=== PATIENT | male | born 1930 | race Caucasian/White ===

== ENCOUNTER 2016-03-06 09:56 | Inpatient (IN) ==
[2016-03-06] MEDS ORDERED: 0.9 % SODIUM CHLORIDE 1,000 ML IV ONE (10:08)
[2016-03-06] MEDS ORDERED: IPRATROPIUM/ALBUTEROL 3 ML AMPUL.NEB NEB ONE (10:17)
--- NOTE | 2016-03-06 10:27 | Emergency Department Note ---
General Adult HPI - General Chief complaint: Weakness Stated complaint: Confusion, SOB Time Seen by Provider: 03/06/16 10:22 Source: patient Mode of arrival: ambulatory Limitations: no limitations - History of Present Illness HPI Narrative: This patient comes down from [facility]. He was found this morning to be a bit confused but his O2 saturation was in the 70s. He is doing now better on oxygen and with a breathing treatment. He does have some wheezing. He had some body aches yesterday but not too much cough no chest pain. No abdominal pain nausea or vomiting. Onset (ago): hour(s) - Related Data Allergies Allergy/AdvReac Type Severity Reaction Status Date / Time Penicillins Allergy Verified 03/06/16 10:08 Review of Systems Constitutional: Denies: fever, chills Eyes: Denies: eye pain ENT ED: Denies: ear pain, throat pain Cardiovascular: Reports: dyspnea on exertion. Denies: chest pain, palpitations Respiratory: Reports: dyspnea. Denies: cough Gastrointestinal: Denies: abdominal pain, nausea, vomiting, diarrhea, constipation, hematemesis, melena, hematochezia Genitourinary: Denies: urgency Musculoskeletal: Denies: back pain Integumentary: Denies: rash Neurological: Denies: headache Past Medical History - Past Medical History Medical history: Reports: asthma, COPD, coronary artery disease Surgical history ED: Reports: coronary bypass (CABG), other (abdominal aortic aneurysm with repair) Physical Exam - General Limitations: no limitations General appearance: alert - Head Head exam: atraumatic - Eye Eye exam: Present: normal appearance - ENT ENT exam: normal exam - Neck Neck exam: Present: normal inspection - Chest Chest inspection: Present: normal inspection - Respiratory Respiratory exam: Present: wheezes - Cardiovascular Cardiovascular exam: Present: regular rate, normal rhythm, normal heart sounds - Abdominal Exam Abdominal exam: Present: soft. Absent: distention, tenderness - Rectal Exam Rectal exam: Present: deferred - Extremities Exam Extremities exam: Absent: pedal edema - Neurological Exam Neurological exam: Present: alert - Psychiatric Psychiatric exam: Present: normal affect - Skin Skin exam: Present: warm, dry Course Vital Signs Temperature 99.3 F 03/06/16 09:58 Pulse Rate 86 03/06/16 09:58 Respiratory Rate 28 H 03/06/16 09:58 Blood Pressure 98/50 03/06/16 09:58 Pulse Oximetry (%) 98 03/06/16 09:58 Temperature 96.5 F L 03/06/16 12:54 Pulse Rate 73 03/06/16 12:54 Respiratory Rate 24 03/06/16 12:54 Blood Pressure 89/54 03/06/16 12:54 Pulse Oximetry (%) 96 03/06/16 12:54 Medical Decision Making - MDM Narrative Medical decision making narrative: This patient is doing reasonably well on oxygen after breathing treatment but his blood pressure despite 2 L of saline was in the 80s. We started him on dopamine. He will be admitted to the ICU with pneumonia. - Lab Data Lab results reviewed: Yes I reviewed the patient's lab results. Result diagrams: 03/06/16 10:44 03/06/16 10:44 Lab Results 03/06/16 03/06/16 03/06/16 Range/Units 10:44 10:44 10:44 WBC 18.3 H (4.5-11.0) K/mcL RBC 3.67 L (4.50-5.90) M/mcL Hgb 11.2 L (13.5-16.5) g/dL Hct 34.4 L (41.0-55.0) % MCV 93.9 (80.0-100.0) fL MCH 30.5 (26.0-34.0) pg MCHC 32.4 (31.0-36.0) g/dL RDW 14.4 (11.5-14.5) % Plt Count 221 (140-440) K/mcL MPV 8.7 (7.4-10.4) fL Gran % 93.7 H (38.0-78.0) % Lymph % (Auto) 4.4 L (15.5-49.0) % [place] % (Auto) 1.9 (1.0-9.0) % Eos % (Auto) 0 (0.0-7.0) % Baso % (Auto) 0 (0.0-2.0) % Gran # 17.2 H (1.8-8.0) K/mcL Lymph # 0.8 L (1.5-4.8) K/mcL [place] # 0.3 (0.1-0.9) K/mcL Eos # 0 (0.0-0.7) K/mcL Baso # 0 (0.0-0.3) K/mcL VBG Lactic Acid 0.8 (0.5-2.2) mmol/L Sodium 139 (133-145) mmol/L Potassium 5.5 H (3.3-5.1) mmol/L Chloride 106 (96-108) mmol/L Carbon Dioxide 22 (22-30) mmol/L Anion Gap 11.0 (8-16) BUN 68 H (8-23) mg/dl Creatinine 1.4 H (0.7-1.2) mg/dl GFR Calculation 46 Glucose 128 H (70-105) mg/dL Calcium 8.6 (8.6-10.4) mg/dl Total Bilirubin 0.4 (0.0-1.0) mg/dL AST 16 (0-37) U/l ALT 15 (0-40) U/l Alkaline Phosphatase 71 (39-117) U/L Troponin T (0-0.03) ng/ml NT-Pro-B Natriuret Pep 1514.0 H (0-450) pg/ml Total Protein 6.3 (5.9-8.4) gm/dL Albumin 3.3 (3.2-5.2) gm/dL Globulin 3.0 (2.2-3.7) gm/dL Albumin/Globulin Ratio 1.1 (1.0-2.3) Urine Color Urine Appearance Urine pH (5.0-9.0) Ur Specific [place] (1.000-1.035) Urine Protein (NEG) mg/dL Urine Glucose (UA) (NEG) mg/dL Urine Ketones (NEG) mg/dL Urine Occult Blood (<0.03) mg/dL Urine Nitrate (NEG) Urine Bilirubin (NEG) mg/dL Urine Urobilinogen (NEG) mg/dL Ur Leukocyte Esterase (NEG) /uL Urine RBC (0-1) /hpf Urine WBC (0-4) /hpf Ur Squamous Epith Cells (0-4) /hpf Urine Bacteria (0) /hpf Urine Mucus (0) /hpf Ur Culture Indicated? 03/06/16 03/06/16 Range/Units 10:44 11:52 WBC (4.5-11.0) K/mcL RBC (4.50-5.90) M/mcL Hgb (13.5-16.5) g/dL Hct (41.0-55.0) % MCV (80.0-100.0) fL MCH (26.0-34.0) pg MCHC (31.0-36.0) g/dL RDW (11.5-14.5) % Plt Count (140-440) K/mcL MPV (7.4-10.4) fL Gran % (38.0-78.0) % Lymph % (Auto) (15.5-49.0) % [place] % (Auto) (1.0-9.0) % Eos % (Auto) (0.0-7.0) % Baso % (Auto) (0.0-2.0) % Gran # (1.8-8.0) K/mcL Lymph # (1.5-4.8) K/mcL [place] # (0.1-0.9) K/mcL Eos # (0.0-0.7) K/mcL Baso # (0.0-0.3) K/mcL VBG Lactic Acid (0.5-2.2) mmol/L Sodium (133-145) mmol/L Potassium (3.3-5.1) mmol/L Chloride (96-108) mmol/L Carbon Dioxide (22-30) mmol/L Anion Gap (8-16) BUN (8-23) mg/dl Creatinine (0.7-1.2) mg/dl GFR Calculation Glucose (70-105) mg/dL Calcium (8.6-10.4) mg/dl Total Bilirubin (0.0-1.0) mg/dL AST (0-37) U/l ALT (0-40) U/l Alkaline Phosphatase (39-117) U/L Troponin T < 0.01 (0-0.03) ng/ml NT-Pro-B Natriuret Pep (0-450) pg/ml Total Protein (5.9-8.4) gm/dL Albumin (3.2-5.2) gm/dL Globulin (2.2-3.7) gm/dL Albumin/Globulin Ratio (1.0-2.3) Urine Color Yellow Urine Appearance Hazy Urine pH 5.0 (5.0-9.0) Ur Specific [place] 1.019 (1.000-1.035) Urine Protein Neg (NEG) mg/dL Urine Glucose (UA) Negative (NEG) mg/dL Urine Ketones 5/tr A (NEG) mg/dL Urine Occult Blood 0.2 A (<0.03) mg/dL Urine Nitrate Neg (NEG) Urine Bilirubin Neg (NEG) mg/dL Urine Urobilinogen Neg (NEG) mg/dL Ur Leukocyte Esterase Neg (NEG) /uL Urine RBC 4 H (0-1) /hpf Urine WBC 1 (0-4) /hpf Ur Squamous Epith Cells 0 (0-4) /hpf Urine Bacteria 0 (0) /hpf Urine Mucus Mod (0) /hpf Ur Culture Indicated? No - Radiology Data Radiology results reviewed: Yes I reviewed the patient's radiology results. ( chest x-ray shows pneumonia with possible fluid overload) Disposition Clinical Impression: Pneumonia Disposition: Xfer As Inpt ([facility]) Condition: Good Referrals: Haven Ricks ARNP [Primary Care Provider] - Time of Disposition: 13:14
[2016-03-06] MEDS ORDERED: LIDOCAINE JEL 2% 1 TUBE 30GM TOPICAL ONE (10:46)
[2016-03-06 11:28] LABS: Basophils # (Auto) 0 K/mcL (0.0-0.3); Basophils % (Auto) 0 % (0.0-2.0); Eosinophils # (Auto) 0 K/mcL (0.0-0.7); Eosinophils % (Auto) 0 % (0.0-7.0); Granulocytes % (Auto) 93.7 % (38.0-78.0); Lymphocytes # (Auto) 0.8 K/mcL (1.5-4.8); Lymphocytes % (Auto) 4.4 % (15.5-49.0); Mean Cell Volume 93.9 fL (80.0-100.0); Mean Corpuscular HGB Conc 32.4 g/dL (31.0-36.0); Mean Corpuscular Hemoglobin 30.5 pg (26.0-34.0); Monocytes # (Auto) 0.3 K/mcL (0.1-0.9); Monocytes % (Auto) 1.9 % (1.0-9.0); Platelet Count 221 K/mcL (140-440); RBC 3.67 M/mcL (4.50-5.90); Red Cell Distribution Width 14.4 % (11.5-14.5)
[2016-03-06] MEDS ORDERED: LEVOFLOXACIN 500 MG/100 ML BAG IV ONE (11:43)
[2016-03-06] MEDS ORDERED: cefTRIAXone 1 GM in DEXTROSE 5% IN WATER 50 ML IV ONE (11:43)
--- NOTE | 2016-03-06 11:43 | XRay Report ---
CLINICAL INFORMATION: Hypoxia COMPARISON: None. FINDINGS: The heart is mildly enlarged and sternotomy changes noted. Mediastinum is normal. Pulmonary vessels are slightly distended. Moderate sized, yet vague patchy infiltrate noted in the right mid and lower lung with a smaller infiltrate in the left lower lung. IMPRESSION: Moderate sized vague right mid/lower lung and smaller left lower lung infiltrates. Consider aspiration. Probable underlying mild CHF or volume overload Interpreted and Authenticated by: Zack Pelayo 03/06/16
[2016-03-06 11:54] LABS: ALT/SGPT 15 U/l (0-40); Albumin 3.3 gm/dL (3.2-5.2); Albumin/Globulin Ratio 1.1 (1.0-2.3); Alkaline Phosphatase 71 U/L (39-117); Blood Urea Nitrogen 68 mg/dl (8-23)
[2016-03-06] MEDS ORDERED: DOPamine 400 MG in PREMIX 1 BAG IV SCH (12:00)
[2016-03-06] MEDS ORDERED: 0.9 % SODIUM CHLORIDE 250 ML IV SCH ×2 (12:00→15:17)
[2016-03-06] MEDS ORDERED: cefTRIAXone 1 GM VIAL ONE (12:16)
[2016-03-06 12:46] LABS: Appearance,Urine HAZY; Bacteria,Urine 0 /hpf (0); Bilirubin,Urine NEG (NEG); Color,Urine YELLOW; Glucose,Urine (UA) NEGATIVE (NEG); Leukocyte Esterase,Urine NEG /uL (NEG); Mucus,Urine MOD /hpf (0); Nitrate,Urine NEG (NEG); Protein,Urine NEG (NEG); Specific Gravity,Urine 1.019 (1.000-1.035); Urine Blood 0.2 mg/dL (<0.03); Urine RBC 4 /hpf (0-1); Urine Squamous Epithelial Cell 0 /hpf (0-4); Urine WBC 1 /hpf (0-4); Urobilinogen,Urine NEG (NEG)
--- NOTE | 2016-03-06 14:57 | Internal Med History&Physical ---
Medical - H&P: HPI Patient information: Note initiated : 03/06/16 at 2:34 pm Service Date, if different from initiated Date: [] Patient: Radames Patten 85 y/o M admitted on for Confusion, SOB. Chief Complaint: [] History of present illness: Mr. Patten is a 85 year old male for 911 was called today for respiratory distress. His initial O2 saturations were reportedly in the 70s, with systolic blood pressure in the 80s. ER evaluation revealed evidence of both pulmonary infiltrates and congestive heart failure. The patient is responding to treatment with oxygen and IV fluids and a dopamine drip. He is now being admitted for community-acquired pneumonia, possibly aspiration pneumonia. the patient states that he has been having trouble with his breathing for at least a month, and was recently seen by pulmonary in [place]. He says they told him he had asthma although his son believes they said he had underlying COPD as well. He was started on a new inhaler Advair, and said ithad been working pretty well he thought. However the last several days she is experiencing increasing shortness of breath. His family notes he has been getting weaker. He has had a cough for quite some time, but said that also had been better recently. He otherwise denies fever or chills, headaches or dizziness, recent eye or ear changes, sore throat, chest pain or palpitations, wheezing, abdominal pain, nausea or vomiting. He does have occasional diarrhea, but says that is chronic. He denies rectal bleeding or dysuria. past medical history: he patient's records did not arrive with him, so the only history we have is from his and his son's memory Asthma COPD Coronary disease, status post OR, status post CABG reported CHF with an ejection fraction of 30% History of hyperlipidemia History of aortic aneurysm repair medications: the patient cannot recall his medications, but believes he is on several inhalers, and bowel meds. staff is trying to contact his pharmacy to verify a list. Allergies: Reportedly to penicillin which causes respiratory distress, and also possibly amiodarone. Family history: The patient was raised in foster care. He believes his natural mother was an alcoholic. Family history is otherwise unknown. Social history: The patient smoked cigarettes for decades, but quit about 20 years ago. He drinks alcohol rarely. He does not use drugs. He usually lives with his girlfriend, but sometimes will stay with his son. Medical - H&P: Meds Allergies Allergy/AdvReac Type Severity Reaction Status Date / Time Penicillins Allergy Severe Anaphylaxis Verified 03/06/16 15:35 Medical - H&P: Exam - Constitutional Vitals: Temp Pulse Resp BP Pulse Ox 96.5 F L 70 24 85/51 97 03/06/16 12:54 03/06/16 14:00 03/06/16 12:54 03/06/16 14:00 03/06/16 14:00 Exam: on exam, the patient is awake and alert, but somewhat hard of hearing. He is a bit irritable at being asked of the same questions again. He tends to yell his answers back at me. Head: Is normocephalic and atraumatic. Ears:There is moderate cerumen in the canals, butTMs appear clear. Eyes: He is blind in his right eye, and has disconjugate gaze. His left pupil is round and reactive. Sclera are anicteric. Pharynx: Mucosa is markedly dry. He has an upper plate only in place Posterior pharynx is not well seen. Neck: Is supple, without obvious lymphadenopathy, JVD, thyromegaly, bruits. Cardiac exam: regular rate and rhythm; 3/6 systolic ejection murmur is heard throughout the precordium. No rubs or gallops are noted. Breath sounds are somewhat decreased but there appear to be a few crackles in the right base, without significant wheezing. Abdomen: Is soft and nontender, without obvious masses. Bowel sounds are active. Extremities show no significant edema. No cyanosis or clubbing is noted. Neurologic: The patient is somewhat hard of hearing, and irritable, but is otherwise alert and cooperative. Motor exam is grossly nonfocal. Skin exam: Does not show any obvious rashes or other worrisome skin lesions. Medical - H&P: Reslt - Labs CBC & Chem 7: 03/06/16 10:44 03/06/16 10:44 Labs: Short CBC 03/06/16 Range/Units 10:44 WBC 18.3 H (4.5-11.0) K/mcL Hgb 11.2 L (13.5-16.5) g/dL Hct 34.4 L (41.0-55.0) % Plt Count 221 (140-440) K/mcL BMP 03/06/16 10:44 Sodium 139 Potassium 5.5 H Chloride 106 Carbon Dioxide 22 BUN 68 H Creatinine 1.4 H Glucose 128 H Calcium 8.6 Cardiac Enzymes 03/06/16 Range/Units 10:44 Troponin T < 0.01 (0-0.03) ng/ml Liver Function 03/06/16 Range/Units 10:44 Total Bilirubin 0.4 (0.0-1.0) mg/dL AST 16 (0-37) U/l ALT 15 (0-40) U/l Alkaline Phosphatase 71 (39-117) U/L Albumin 3.3 (3.2-5.2) gm/dL Urine 03/06/16 Range/Units 11:52 Urine Color Yellow Urine Appearance Hazy Urine pH 5.0 (5.0-9.0) Ur Specific [place] 1.019 (1.000-1.035) Urine Protein Neg (NEG) mg/dL Urine Glucose (UA) Negative (NEG) mg/dL differential shows 93% granulocytes, with 17,000 absolute granulocyte count lactic acid is normal at 0.8 The BNP is elevated at 1514 eKG shows probable sinus rhythm with left axis deviationand slow R-wave progression. There is no old EKG to compare. chest x-ray done on March 06, 2016:Mild cardiomegaly and sternotomy changes. Pulmonary vessels are slightly distended. There is a moderate patchy infiltrate noted in the right mid and lower lungs and a small infiltrate in the left lower lung. Consider aspiration pneumonia. Consider underlying CHF. d-dimer is elevated at 5.53 Lactic acid is normal at 0.8 urinalysis shows 5 ketones and 0.2 occult blood, but is otherwise normal. Medical - H&P: A/P (1) Asthma Current visit: Yes Status: Acute (2) COPD (chronic obstructive pulmonary disease) Current visit: Yes Status: Acute (3) Acute and chronic respiratory failure ([id number]) Current visit: Yes Status: Acute (4) CHF (congestive heart failure) Current visit: Yes Status: Acute (5) CAD (coronary artery disease) Current visit: Yes Status: Acute (6) Hx of CABG Current visit: Yes Status: Acute (7) ARF (acute renal failure) Current visit: Yes Status: Acute #1. Infectious disease/Pulmonary. this patient presents with acute on chronic respiratory failure likely due to bilateral pneumonia. This appears to be an aspiration pneumonia. -he was initially quite hypoxic, but is much improved on oxygen. -treat for both community-acquired and aspiration pneumonia, with Rocephin and clindamycin, as he is allergic to penicillin.- -Continue oxygen, bronchodilators, pulmonary toilet. -try to verify home medications. He might require either inhaled or IV steroids as well. -d-dimer is positive, which may be related to is infectious process. If he does not respond quickly to treatment for infection, we may need to do a pulmonary angiogram. His BUN/creatinine at this time are such that he could not have IV dye. -speech evaluation ordered, in view of possible aspiration. #2. SIRS syndrome -He may have early sepsis related to pneumonia, as evidenced by fever, tachypnea , hypoxia, hypotension leukocytosis. -He is receiving aggressive IV hydration as well as antibiotics. -lactic acid is normal. #3. Cardiac. History of coronary disease as well as congestive heart failure. He has evidence of mild CHF on his x-ray, but clinically appears more dry, so he is receiving IV fluids. He is also receiving IV vasopressors to support blood pressure, and we will wean fluids as we are able. -Verify home medications. -check echocardiogram. #4. CODE STATUS: This was discussed with the patient as well as his son, and they agreed that he might be willing to accept ventilator management if he needed that to get over his pneumonia, but if his heart stops he does not want chest compressions or defibrillation. #5. DVT prophylaxis:Subcutaneous heparin for now,unless it turns out that he is on an anticoagulant at home. #6. Renal. he appears to have acute renal insufficiency associated with hyperkalemia. We will monitor this as we hydrate him. this visit took approximately 75 minutes, to review the patient's test results, review his case with the ER Kevin, interview and examine him, review plan of care with the patient and his son and girlfriend, and write orders.
[2016-03-06] MEDS ORDERED: ONDANSETRON 4 MG/2 ML VIAL IV PRN (15:17)
[2016-03-06] MEDS ORDERED: DOPamine 400 MG in PREMIX 1 BAG IV PRN (15:17)
[2016-03-06] MEDS ORDERED: NALOXONE HCL 0.4 MG/ML VIAL IV PRN (15:17)
[2016-03-06] MEDS ORDERED: DOCUSATE SODIUM 100 MG CAPSULE PO PRN (15:17)
[2016-03-06] MEDS ORDERED: ALBUTEROL SULFATE 2.5 MG/3 ML NEBULIZER NEB PRN (15:17)
[2016-03-06] MEDS ORDERED: ACETAMINOPHEN 325 MG TABLET PO PRN (15:17)
[2016-03-06] MEDS ORDERED: SENNOSIDES 1 TABLET PO PRN (15:17)
[2016-03-06] MEDS ORDERED: MAGNESIUM HYDROXIDE 30 ML ORAL.SUSP PO PRN (15:17)
[2016-03-06 15:51] LABS: ALT/SGPT 15 U/l (0-40); Albumin 3.2 gm/dL (3.2-5.2); Alkaline Phosphatase 70 U/L (39-117); Bilirubin,Direct < 0.2 mg/dL (0.0-0.3); Blood Urea Nitrogen 69 mg/dl (8-23); Gamma Glutamyl Transpeptidase 18 U/L (8-61); Magnesium 2.1 mg/dL (1.6-2.5); Phosphorous 2.8 mg/dL (2.7-4.5); Uric Acid 6.1 mg/dL (2.5-8.0)
[2016-03-06] MEDS: DEXTROSE 5%-1/2NS 1,000 ML IV SCH (15:55)
[2016-03-06] MEDS: 0.9 % SODIUM CHLORIDE 10 ML SYRINGE IV SCH ×2 (15:59→22:24)
[2016-03-06] MEDS: 0.9 % SODIUM CHLORIDE 250 ML IV SCH ×2 (16:24)
[2016-03-06] MEDS: CLINDAMYCIN 600 MG in DEXTROSE 5% IN WATER 50 ML IV SCH ×2 (16:25→22:14)
[2016-03-06] MEDS: NOREPINEPHRINE BITARTRATE 8 MG in 0.9 % SODIUM CHLORIDE 242 ML IV SCH (17:16)
[2016-03-06] MEDS: IPRATROPIUM/ALBUTEROL 3 ML AMPUL.NEB NEB SCH (18:02)
[2016-03-06 19:20] LABS: Hemoglobin A1C 5.8 % HGB (4.0-6.0)
[2016-03-06] MEDS: FAMOTIDINE/PF 20 MG/2 ML VIAL IV SCH (22:13)
[2016-03-06] MEDS: HEPARIN 5,000 UNIT/ML VIAL SQ SCH (22:14)
[2016-03-06] MEDS: LORazepam 2 MG/ML VIAL IV PRN (23:07)
[2016-03-07] MEDS: IPRATROPIUM/ALBUTEROL 3 ML AMPUL.NEB NEB SCH ×4 (00:09→19:40)
[2016-03-07] MEDS: 0.9 % SODIUM CHLORIDE 250 ML IV SCH ×5 (01:22→16:24)
[2016-03-07] MEDS: DEXTROSE 5%-1/2NS 1,000 ML IV SCH (04:36)
[2016-03-07] MEDS: CLINDAMYCIN 600 MG in DEXTROSE 5% IN WATER 50 ML IV SCH ×3 (05:26→21:35)
[2016-03-07 05:53] LABS: Basophils # (Auto) 0 K/mcL (0.0-0.3); Basophils % (Auto) 0 % (0.0-2.0); Eosinophils # (Auto) 0.2 K/mcL (0.0-0.7); Eosinophils % (Auto) 1.3 % (0.0-7.0); Granulocytes % (Auto) 89.9 % (38.0-78.0); Lymphocytes % (Auto) 5.5 % (15.5-49.0); Mean Cell Volume 95.4 fL (80.0-100.0); Mean Corpuscular HGB Conc 32.2 g/dL (31.0-36.0); Mean Corpuscular Hemoglobin 30.7 pg (26.0-34.0); Monocytes # (Auto) 0.6 K/mcL (0.1-0.9); Monocytes % (Auto) 3.3 % (1.0-9.0); Platelet Count 206 K/mcL (140-440); RBC 3.26 M/mcL (4.50-5.90); Red Cell Distribution Width 14.3 % (11.5-14.5)
[2016-03-07] MEDS: 0.9 % SODIUM CHLORIDE 10 ML SYRINGE IV SCH ×3 (06:13→22:00)
[2016-03-07 06:27] LABS: ALT/SGPT 12 U/l (0-40); Albumin 2.9 gm/dL (3.2-5.2); Alkaline Phosphatase 65 U/L (39-117); Bilirubin,Direct < 0.2 mg/dL (0.0-0.3); Blood Urea Nitrogen 52 mg/dl (8-23); Gamma Glutamyl Transpeptidase 18 U/L (8-61); Magnesium 2.2 mg/dL (1.6-2.5); Phosphorous 2.5 mg/dL (2.7-4.5); Uric Acid 5.5 mg/dL (2.5-8.0)
[2016-03-07] MEDS: FAMOTIDINE/PF 20 MG/2 ML VIAL IV SCH ×2 (09:16→21:35)
[2016-03-07] MEDS: cefTRIAXone 1 GM in DEXTROSE 5% IN WATER 50 ML IV SCH (09:16)
[2016-03-07] MEDS: HEPARIN 5,000 UNIT/ML VIAL SQ SCH ×2 (09:16→21:35)
[2016-03-07] MEDS ORDERED: FUROSEMIDE 20 MG/2 ML VIAL IV ONE (11:50)
[2016-03-07] MEDS ORDERED: NOREPINEPHRINE BITARTRATE 8 MG in 0.9 % SODIUM CHLORIDE 242 ML IV PRN (11:56)
[2016-03-07] MEDS: NOREPINEPHRINE BITARTRATE 8 MG in 0.9 % SODIUM CHLORIDE 242 ML IV SCH (12:17)
--- NOTE | 2016-03-07 13:18 | Internal Med Progress Note ---
Medical - PN: Subj Patient information: Note initiated : 03/07/16 at 1:18 pm Service Date, if different from initiated Date: [] Patient: Radames Patten 85 y/o M admitted on 03/06/16 for Confusion, SOB/ Pneumonia. Chief Complaint: [] Interval history: March 06, 2016:History of present illness: Mr. Patten is a 85 year old male for 911 was called today for respiratory distress. His initial O2 saturations were reportedly in the 70s, with systolic blood pressure in the 80s. ER evaluation revealed evidence of both pulmonary infiltrates and congestive heart failure. The patient is responding to treatment with oxygen and IV fluids and a dopamine drip. He is now being admitted for community-acquired pneumonia, possibly aspiration pneumonia. the patient states that he has been having trouble with his breathing for at least a month, and was recently seen by pulmonary in [place]. He says they told him he had asthma although his son believes they said he had underlying COPD as well. He was started on a new inhaler Advair, and said ithad been working pretty well he thought. However the last several days she is experiencing increasing shortness of breath. His family notes he has been getting weaker. He has had a cough for quite some time, but said that also had been better recently. He otherwise denies fever or chills, headaches or dizziness, recent eye or ear changes, sore throat, chest pain or palpitations, wheezing, abdominal pain, nausea or vomiting. He does have occasional diarrhea, but says that is chronic. He denies rectal bleeding or dysuria. march 07, 2016: today, the patient says he is feeling much better.e is now maintaining his oxygen saturations on room air. He was weaned off his levophed this morning, and is maintaining his blood pressures nicely.he is already asking when he could go home. His white blood cell count though, remains quite elevated. Later this morning,he became more dyspneic with an increased respiratory rate. On reviewing his home medication list, which we just got, he is supposed to be on several cardiac meds including Lasix at home. He was given a dose of IV Lasix, and seemed to improve. therwise, he denies fever or chills, chest pain or palpitations. He feels his shortness of breath is improved, but not at baseline He thinks he is coughing less as well. He denies abdominal pain, nausea or vomiting. He does say that he has occasional constipation. He would like to have his Guerra catheter removed. 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 - He has severe systolic dysfunction with an ejection fraction of 25%, status post CABG. They recommendedmaintaining him on his Lasix, potassium, Coreg, lisinopril. They did suggest that he seek AICD placement for possible biventricular pacing but the patient apparently is not terribly interested in that. -ischemic cardiomyopathy, status post triple vessel bypass in January 2014, as well as myocardial infarction COPD Lipidemia GERD Renal insufficiency BPH next line coagulopathy left bundle-branch block - Constitutional Vitals: Vital Signs Temp Pulse Resp BP Pulse Ox 97.7 F 71 28 H 104/66 97 03/07/16 12:00 03/07/16 12:00 03/07/16 12:00 03/07/16 12:00 03/07/16 12:00 Period Temp Pulse Resp BP Sys/Plummer Pulse Ox Last 24 Hr 97.1 F-98.8 F 62-80 18-28 73-120/45-82 93-100 Intake and Output 03/06/16 03/07/16 03/07/16 21:59 05:59 13:59 Intake Total 420 / 520 1305 / 1305 323 / 323 Output Total 550 / 550 780 / 780 490 / 490 Balance -130 / -30 525 / 525 -167 / -167 Weight 176 lb 14.4 oz Intake & Output: Intake & Output 03/06/16 03/07/16 03/07/16 21:59 05:59 13:59 Intake Total 420 / 520 1305 / 1305 323 / 323 Output Total 550 / 550 780 / 780 490 / 490 Balance -130 / -30 525 / 525 -167 / -167 Weight 176 lb 14.4 oz Intake: IV 100 / 100 1305 / 1305 83 / 83 Sodium Chloride 0.9% 250 174 / 174 ml @ 20 mls/hr IV . [id number] [facility]ENN[facility] Rx#:[id number] Dextrose 5% in Water 50 54 / 54 54 / 54 54 / 54 ml @ 100 mls/hr IV Q8 [facility]ENN[facility] with Cleocin 600 mg Rx#: [id number] DOPamine 400 MG In Premix 43 / 43 1 Bag @ 5 MCG/KG/MIN 14. 88 mls/hr IV .[id number] JENN[facility] Rx#:[id number] Dextrose 5%-1/2Ns IV 1000 / 1000 Solution 1,000 ml @ 84 mls/hr IV .[id number] [facility]ENN[facility] Rx #:[id number] Levophed 8 mg In Sodium 3 / 3 77 / 77 29 / 29 Chloride 0.9% 242 ml @ 10 MCG/MIN 18.75 mls/hr IV Q14H JENN[facility]ER Rx#:[id number] Oral 320 / 320 240 / 240 Output: Urine Catheter Amount 550 / 550 780 / 780 490 / 490 Other: Meal Dinner Breakfast Percent of Meal Consumed 75% 100% Feeding Ability Assist with Tray Set Up Assist with Tray Set Up Exam: on exam he is a well-developed well-nourished man, who is sitting up in his chair, and demanding breakfast. He is a bit calmer than yesterday. Neck is supple without obvious lymphadenopathy or JVD. Cardiac exam shows a regular rate and rhythm, with 3/6 systolic ejection murmur. soft and nontender without obvious masses. Extremities; Show minimal edema. Neurologic exam is grossly nonfocal. Medical - PN: Obj Da - Labs CBC & Chem 7: 03/07/16 04:50 03/07/16 04:50 Labs: Abnormal Lab Results 03/07/16 03/07/16 04:50 04:50 WBC 17.6 H RBC 3.26 L Hgb 10.0 L Hct 31.0 L Gran % 89.9 H Lymph % (Auto) 5.5 L Gran # 15.8 H Lymph # 1.0 L Carbon Dioxide 21 L BUN 52 H Glucose 165 H Calcium 8.4 L Phosphorus 2.5 L Albumin 2.9 L lactic acid is normal at 0.8 The BNP is elevated at 1514 eKG shows probable sinus rhythm with left axis deviationand slow R-wave progression. There is no old EKG to compare. chest x-ray done on March 06, 2016:Mild cardiomegaly and sternotomy changes. Pulmonary vessels are slightly distended. There is a moderate patchy infiltrate noted in the right mid and lower lungs and a small infiltrate in the left lower lung. Consider aspiration pneumonia. Consider underlying CHF. d-dimer is elevated at 5.53 Lactic acid is normal at 0.8 urinalysis shows 5 ketones and 0.2 occult blood, but is otherwise normal. Meds: Medications Acetaminophen (Tylenol) 650 mg PO Q4-6HP PRN PRN Reason: PAIN/FEVER > 101 Albuterol Sulfate (Ventolin) 2.5 mg NEB Q4HP PRN PRN Reason: Shortness Of Breath Or Wheezing Albuterol/Ipratropium (Duoneb) 3 ml NEB Q6HRT [facility] Last Admin: 03/07/16 07:24 Dose: 3 ml Docusate Sodium (Colace) 100 mg PO BID PRN PRN Reason: Constipation Famotidine (Pepcid) 20 mg IV Q12 [facility] Last Admin: 03/07/16 09:16 Dose: 20 mg Heparin Sodium (Porcine) (Heparin) 5,000 unit SQ Q12 [facility] Last Admin: 03/07/16 09:16 Dose: 5,000 unit Dopamine HCl/Dextrose 400 mg/ (Premix) 250 mls @ 14.88 mls/hr IV .[id number] PRN; Protocol; 5 MCG/KG/MIN PRN Reason: TITRATE TO KEEP MAP > 60 Sodium Chloride (Sodium Chloride 0.9%) 250 mls @ 20 mls/hr IV .[id number] [facility] Last Admin: 03/07/16 06:12 Dose: Not Given Dextrose/Sodium Chloride (Dextrose 5%-1/2ns Iv Solution) 1,000 mls @ 84 mls/hr IV .[id number] [facility] Last Admin: 03/07/16 04:36 Dose: 84 mls/hr Ceftriaxone Sodium 1 gm/ (Dextrose) 50 mls @ 100 mls/hr IV DAILY [facility] Last Admin: 03/07/16 09:16 Dose: 100 mls/hr Clindamycin Phosphate 600 mg/ (Dextrose) 54 mls @ 100 mls/hr IV Q8 [facility] Last Infusion: 03/07/16 06:00 Dose: Infused Sodium Chloride (Sodium Chloride 0.9%) 250 mls @ 20 mls/hr IV .[id number] [facility] Last Admin: 03/07/16 05:26 Dose: Not Given Norepinephrine Bitartrate 8 mg (/ Sodium Chloride) 250 mls @ 18.75 mls/hr IV Q24HP PRN; Protocol; 10 MCG/MIN PRN Reason: Hypotension Lorazepam (Ativan) 0.5 mg IV Q2HP PRN PRN Reason: ANXIETY/SEDATION Last Admin: 03/06/16 23:07 Dose: 0.5 mg Magnesium Hydroxide (Milk Of Magnesia) 30 ml PO DAILYP PRN PRN Reason: Constipation Morphine Sulfate (Morphine) 2 mg IV Q2HP PRN PRN Reason: Pain Naloxone HCl (Narcan) 0.1 mg IV Q2MIN PRN PRN Reason: Opiate Reversal Ondansetron HCl (Zofran) 4 mg IV Q4-6HP PRN PRN Reason: Nausea And Vomiting Pneumococcal Polyvalent Vaccine (Pneumovax 23) 0.5 ml IM .ONCE ONE Stop: 03/08/16 10:01 Senna (Senokot) 1 tab PO HSP PRN PRN Reason: Constipation Sodium Chloride (Saline Flush) 10 ml IV Q8 [facility] Last Admin: 03/07/16 06:13 Dose: Not Given Medical - PN: A/P - Time Spent With Patient Total time spent is greater than 50% in coordination of care (as documented) at patient's floor/unit and/or counseling patient: (1) Asthma Status: Acute Current Visit: Yes (2) COPD (chronic obstructive pulmonary disease) Status: Acute Current Visit: Yes (3) Acute and chronic respiratory failure ([id number]) Status: Acute Current Visit: Yes (4) CHF (congestive heart failure) Status: Acute Current Visit: Yes (5) CAD (coronary artery disease) Status: Acute Current Visit: Yes (6) Hx of CABG Status: Acute Current Visit: Yes (7) ARF (acute renal failure) Status: Acute Current Visit: Yes - Narrative A/P Narrative: #1. Infectious disease/Pulmonary. this patient presents with acute on chronic respiratory failure likely due to bilateral pneumonia. This appears to be an aspiration pneumonia. -he was initially quite hypoxic, but is much improved on oxygen. he seems to be improving rapidly, clinically, on IV Rocephin and clindamycin. his hypoxemia has resolved. -Continue oxygen, bronchodilators, pulmonary toilet. -he is on a home inhaler witha steroid and long-acting bronchodilator. I think we can hold off on adding this back, as he is doing so well. -d-dimer is positive, which may be related to is infectious process. If he does not respond quickly to treatment for infection, we may need to do a pulmonary angiogram. His BUN/creatinine at this time are such that he could not have IV dye. -speech evaluation ordered, in view of possible aspiration. #2. SIRS syndrome -He may have early sepsis related to pneumonia, as evidenced by fever, tachypnea , hypoxia, hypotension leukocytosis. he is much improved after aggressive IV fluids and IV antibiotics. -lactic acid is normal. #3. Cardiac. History of coronary disease as well as congestive heart failure. He has evidence of mild CHF on his x-ray, but clinically appears more dry, so he is receiving IV fluids. he did receive vasopressors for blood pressure support overnight, but weaned off of those this morning. -We will resume his usual medications of lisinopril, Coreg, Lasix, potassium. -check echocardiogram. his last ejection fraction in 2014 was noted at 25%. He is followed by Dr. Perry of cardiology #4. CODE STATUS: This was discussed with the patient as well as his son, and they agreed that he might be willing to accept ventilator management if he needed that to get over his pneumonia, but if his heart stops he does not want chest compressions or defibrillation. #5. DVT prophylaxis:Subcutaneous heparin . It looks like he is not on any anticoagulant at home, other than a baby aspirin. #6. Renal. he appears to have acute renal insufficiency associated with hyperkalemia. We will monitor this as we hydrate him. Approximately 35 minutes is spent spent so far today, reviewing test results, interviewing and examining him, reviewing plan of care with the nurses, and then a dressing E HF symptoms later in the day, as well as reviewing old records.. Medical - PN: Qual - VTE Deep Vein Thrombosis/Pulmonary Embolism Present on Admission: No
[2016-03-07] MEDS: LORazepam 2 MG/ML VIAL IV PRN (19:08)
[2016-03-07] MEDS ORDERED: ACETAMINOPHEN W/CODEINE #3 1 TABLET PO PRN (21:00)
[2016-03-07] MEDS: CARVEDILOL 12.5 MG TABLET PO SCH (21:35)
[2016-03-08] MEDS: IPRATROPIUM/ALBUTEROL 3 ML AMPUL.NEB NEB SCH ×4 (01:13→18:21)
[2016-03-08] MEDS: 0.9 % SODIUM CHLORIDE 250 ML IV SCH ×2 (05:29→05:30)
[2016-03-08] MEDS: CLINDAMYCIN 600 MG in DEXTROSE 5% IN WATER 50 ML IV SCH ×3 (05:30→21:44)
[2016-03-08 06:14] LABS: Basophils # (Auto) 0 K/mcL (0.0-0.3); Basophils % (Auto) 0.4 % (0.0-2.0); Eosinophils # (Auto) 0.2 K/mcL (0.0-0.7); Eosinophils % (Auto) 1.3 % (0.0-7.0); Granulocytes % (Auto) 79.4 % (38.0-78.0); Lymphocytes # (Auto) 1.7 K/mcL (1.5-4.8); Lymphocytes % (Auto) 13.8 % (15.5-49.0); Mean Cell Volume 94.1 fL (80.0-100.0); Mean Corpuscular HGB Conc 32.7 g/dL (31.0-36.0); Mean Corpuscular Hemoglobin 30.8 pg (26.0-34.0); Monocytes # (Auto) 0.6 K/mcL (0.1-0.9); Monocytes % (Auto) 5.1 % (1.0-9.0); Platelet Count 216 K/mcL (140-440); RBC 3.18 M/mcL (4.50-5.90); Red Cell Distribution Width 14.6 % (11.5-14.5)
[2016-03-08 06:42] LABS: ALT/SGPT 15 U/l (0-40); Albumin 3.1 gm/dL (3.2-5.2); Albumin/Globulin Ratio 1.1 (1.0-2.3); Alkaline Phosphatase 62 U/L (39-117); Bilirubin,Direct < 0.2 mg/dL (0.0-0.3); Blood Urea Nitrogen 44 mg/dl (8-23); Gamma Glutamyl Transpeptidase 16 U/L (8-61); Magnesium 2.1 mg/dL (1.6-2.5); Phosphorous 2.1 mg/dL (2.7-4.5); Uric Acid 5.4 mg/dL (2.5-8.0)
[2016-03-08] MEDS: 0.9 % SODIUM CHLORIDE 10 ML SYRINGE IV SCH ×3 (07:07→21:51)
--- NOTE | 2016-03-08 07:28 | Echocardiogram Report ---
ECHOCARDIOGRAM: 2-D and M-mode echocardiography with cardiac Doppler and color flow imaging were performed with a [employer] Aplio MX. Indication is hypoxia, elevated BNP, and triple bypass. Overall size of the RA, RV, and LV appeared normal. LV wall thickness appeared mildly increased. Septal motion appeared dyssynergic as can be seen following open heart surgery and the inferior wall appeared severely hypokinetic, but the other LV segments appeared to contract near normally, though not vigorously. Estimated ejection fraction is 40%, moderately depressed. 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 The LA appeared mildly enlarged. There was no evidence for mural thrombi. The LA appeared mildly enlarged. The aortic root appeared mildly dilated. The root appeared sclerotic. The aortic valve appeared heavily calcified. Valve opening appeared reduced. Maximal instantaneous aortic outflow systolic gradient as obtained from the right sternal border and as calculated by the modified Bernoulli equation was 22 mmHg. The valve area as calculated by the continuity equation was 1.8 cm2 and area index was 0.9 cm2/m2, all corroborating mild aortic stenosis. There was no evidence for aortic regurgitation. The mitral and tricuspid valves appeared unremarkable. Doppler interrogation of LV inflow disclosed prolonged early diastolic deceleration time and 'a' wave dominance indicating delayed LV relaxation. No more than trivial mitral regurgitation was noted. Mitral E-point septal suppuration was increased corroborating reduced LV ejection fraction. Pulmonary venous interrogation disclosed equal 's' and 'd' wave amplitude. The pulmonic valve showed the so-called 'flying W' configuration as can be seen with pulmonary hypertension. Pulmonary artery acceleration time appeared normal. There was no evidence for pulmonic stenosis. Pulmonic regurgitation and tricuspid regurgitation, both probably mild (1+), were present. No intracardiac shunting was appreciated. There was no evidence for pericardial effusion. The IVC was of normal diameter and showed near normal respiratory variation. Calculated estimate of PA systolic pressure is high normal at 30-35 mmHg. Sinus rhythm, rate 65, was present. CONCLUSION:Mild aortic root dilatation/root sclerosis. Aortic stenosis, probably mild. Mild concentric LVH with moderate segmental systolic dysfunction (see text). Mild LA enlargement. (See accompanying M-mode and Doppler reports for quantitation.) ECHOCARDIOGRAPHY M-MODE CALCULATIONS: HT: 5'7 WT: 176 BSA: 1.92 m2 NORMALS AORTA: AORTIC ROOT 3.8 2.0-3.7 cm LEFT ATRIUM 3.9 1.9-4.0 cm MITRAL VALVE: EXCURSION 2.4 1.9-2.7 cm EPSS 1.1 <0.5 cm LT VENTRICLE: LVID (ED) 4.8 3.5-5.7 cm LVID (ES) 3.2 SEPTAL THICKNESS 1.1 0.6-1.1 cm SEPTAL EXCURSION 0.4 0.3-0.8 cm LVPW THICKNESS 1.1 0.6-1.1 cm LVPW EXCURSION 1.0 0.9-1.4 cm MINOR AXIS FS 3.3 25%-40% RT VENTRICLE: RVID (ED) -- 0.9-2.6 cm(up to 3cm if LLD) QUALITATIVE DOPPLER FLOW STUDIES MITRAL VALVE MR, probably trivial AORTIC VALVE , probably mild (1+) TRICUSPID VALVE TR, probably mild (1+) PULMONIC VALVE NC, probably mild (1+) QUANTITATIVE DOPPLER FLOW STUDIES SAMPLE SITES VELOCITIES PEAK PRESSURE VALVE AREA and/or VALVE WINDOW (PEAK,M/SEC) DROP (GRADIENT) PRESSURE HALF-TIME MV (Diastole) 0.9 1.0 -- -- MV (Systole) 3.0 -- -- AO (Diastole) -- -- -- AO (Systole) (RSB) 2.3; 22 mmHg; 1.8 cm2, 0.9 cm2/m2 TV (Systole) 2.4 -- -- PV (Systole) 1.0 -- -- PV (Diastole) 1.2 LWG:kadeem Job ID: [id number] Doc ID: [id number] Gilson Taylor MD
[2016-03-08] MEDS ORDERED: FUROSEMIDE 40 MG/4 ML VIAL IV ONE (07:52)
[2016-03-08] MEDS: FAMOTIDINE/PF 20 MG/2 ML VIAL IV SCH ×2 (09:17→20:54)
[2016-03-08] MEDS: POLYETHYLENE GLYCOL 3350 17 GM PACKET PO SCH (09:17)
[2016-03-08] MEDS: HEPARIN 5,000 UNIT/ML VIAL SQ SCH ×2 (09:17→20:54)
[2016-03-08] MEDS: POTASSIUM CHLORIDE 20 MEQ TABLET PO SCH (09:17)
[2016-03-08] MEDS: FUROSEMIDE 20 MG TABLET PO SCH (09:18)
[2016-03-08] MEDS: LISINOPRIL 10 MG TABLET PO SCH (09:18)
[2016-03-08] MEDS: CARVEDILOL 12.5 MG TABLET PO SCH ×2 (09:18→20:54)
--- NOTE | 2016-03-08 09:45 | XRay Report ---
CLINICAL INFORMATION: Follow pneumonia COMPARISON: 03/06/2016 portable chest FINDINGS: Moderate cardiomegaly is unchanged. Mediastinum is unremarkable. Moderate sized infiltrates in the right mid and lower lung have worsened. Mild patchy infiltrate in the left lower lung has also worsened. The pulmonary vessels are mildly distended IMPRESSION: 1. Moderate size right mid and lower lung infiltrate and smaller left lower lung infiltrates have worsened. 2. Probable underlying mild CHF or volume overload Interpreted and Authenticated by: Zack Pelayo 03/08/16
[2016-03-08] MEDS ORDERED: PNEUMOCOCCAL 23-VAL P-SAC VAC 0.5 ML VIAL IM ONE (10:00)
[2016-03-08] MEDS: cefTRIAXone 1 GM in DEXTROSE 5% IN WATER 50 ML IV SCH (11:24)
--- NOTE | 2016-03-08 16:41 | Internal Med Progress Note ---
Medical - PN: Subj Patient information: Note initiated : 03/08/16 at 4:41 pm Service Date, if different from initiated Date: [] Patient: Radames Patten 85 y/o M admitted on 03/06/16 for Confusion, SOB/ Pneumonia. Chief Complaint: [] Interval history: March 06, 2016:History of present illness: Mr. Patten is a 85 year old male for 911 was called today for respiratory distress. His initial O2 saturations were reportedly in the 70s, with systolic blood pressure in the 80s. ER evaluation revealed evidence of both pulmonary infiltrates and congestive heart failure. The patient is responding to treatment with oxygen and IV fluids and a dopamine drip. He is now being admitted for community-acquired pneumonia, possibly aspiration pneumonia. the patient states that he has been having trouble with his breathing for at least a month, and was recently seen by pulmonary in [place]. He says they told him he had asthma although his son believes they said he had underlying COPD as well. He was started on a new inhaler Advair, and said ithad been working pretty well he thought. However the last several days she is experiencing increasing shortness of breath. His family notes he has been getting weaker. He has had a cough for quite some time, but said that also had been better recently. He otherwise denies fever or chills, headaches or dizziness, recent eye or ear changes, sore throat, chest pain or palpitations, wheezing, abdominal pain, nausea or vomiting. He does have occasional diarrhea, but says that is chronic. He denies rectal bleeding or dysuria. march 07, 2016: today, the patient says he is feeling much better.e is now maintaining his oxygen saturations on room air. He was weaned off his levophed this morning, and is maintaining his blood pressures nicely.he is already asking when he could go home. His white blood cell count though, remains quite elevated. Later this morning,he became more dyspneic with an increased respiratory rate. On reviewing his home medication list, which we just got, he is supposed to be on several cardiac meds including Lasix at home. He was given a dose of IV Lasix, and seemed to improve. therwise, he denies fever or chills, chest pain or palpitations. He feels his shortness of breath is improved, but not at baseline He thinks he is coughing less as well. He denies abdominal pain, nausea or vomiting. He does say that he has occasional constipation. He would like to have his Guerra catheter removed. march 08, 2016: today, the patient says he is a little short of breath when he first wakes up, but otherwise is feeling better. After the nebulizer treatment he says his breathing is fine. He denies headaches, fever or chills, sore throat, chest pain or palpitations, abdominal pain, nausea or vomiting or diarrhea, or dysuria. - Constitutional Vitals: Vital Signs Temp Pulse Resp BP Pulse Ox 97.3 F L 73 20 108/66 94 03/08/16 12:00 03/08/16 16:00 03/08/16 16:00 03/08/16 16:00 03/08/16 16:00 Period Temp Pulse Resp BP Sys/Plummer Pulse Ox Last 24 Hr 97.3 F-98.9 F 66-79 18-33 102-136/56-86 86-99 Intake and Output 03/08/16 03/08/16 03/08/16 05:59 13:59 21:59 Intake Total 254 / 254 54 / 54 Output Total 525 / 525 100 / 100 Balance -271 / -271 -46 / -46 Intake & Output: Intake & Output 03/08/16 03/08/16 03/08/16 05:59 13:59 21:59 Intake Total 254 / 254 54 / 54 Output Total 525 / 525 100 / 100 Balance -271 / -271 -46 / -46 Intake: IV 54 / 54 54 / 54 Dextrose 5% in Water 50 54 / 54 54 / 54 ml @ 100 mls/hr IV Q8 JENNIFER with Cleocin 600 mg Rx#: [id number] Oral 200 / 200 Output: Void Amount 525 / 525 100 / 100 Exam: on exam, he is sitting up in a chair. He is in no acute distress. Neck is supple without lymphadenopathy or JVD. Cardiac exam shows regular rate and rhythm. Lung exam is fairly clear to auscultation with only occasional crackles. Abdomen is soft and nontender. Extremities show no edema. Medical - PN: Obj Da - Labs CBC & Chem 7: 03/08/16 04:25 03/08/16 04:25 Labs: Abnormal Lab Results 03/08/16 03/08/1603/07/17 04:25 04:25 04:50 WBC 12.4 H RBC 3.18 L Hgb 9.8 L Hct 30.0 L RDW 14.6 H Gran % 79.4 H Lymph % (Auto) 13.8 L Gran # 9.9 H Lymph # Carbon Dioxide 21 L BUN 44 H 52 H Glucose 165 H Calcium 8.4 L Phosphorus 2.1 L 2.5 L Total Protein 5.8 L Albumin 3.1 L 2.9 L 03/07/16 04:50 WBC 17.6 H RBC 3.26 L Hgb 10.0 L Hct 31.0 L RDW Gran % 89.9 H Lymph % (Auto) 5.5 L Gran # 15.8 H Lymph # 1.0 L Carbon Dioxide BUN Glucose Calcium Phosphorus Total Protein Albumin portable chest x-ray from March 08, 2016: Moderate size infiltrates in the right mid and lower lung have worsened. Mild patchy infiltrate in the left lower lung has also worsened. Pulmonary vessels are mildly distended. echocardiogram, 03/07/16:nferior wall appears severely hypokinetic, but other segments contract normally. Estimated ejection fraction 40%. There is mild aortic root dilation. Mild aortic stenosis. Mild concentric LVH with segmental systolic dysfunction lactic acid is normal at 0.8 The BNP is elevated at 1514 eKG shows probable sinus rhythm with left axis deviationand slow R-wave progression. There is no old EKG to compare. chest x-ray done on March 06, 2016:Mild cardiomegaly and sternotomy changes. Pulmonary vessels are slightly distended. There is a moderate patchy infiltrate noted in the right mid and lower lungs and a small infiltrate in the left lower lung. Consider aspiration pneumonia. Consider underlying CHF. d-dimer is elevated at 5.53 urinalysis shows 5 ketones and 0.2 occult blood, but is otherwise normal. Meds: Medications Acetaminophen (Tylenol) 650 mg PO Q4-6HP PRN PRN Reason: PAIN/FEVER > 101 Acetaminophen/Codeine Phosphate (Tylenol #3) 1 tab PO HSP PRN PRN Reason: Pain Albuterol Sulfate (Ventolin) 2.5 mg NEB Q4HP PRN PRN Reason: Shortness Of Breath Or Wheezing Albuterol/Ipratropium (Duoneb) 3 ml NEB Q6HRT JENNIFER Last Admin: 03/08/16 12:46 Dose: 3 ml Carvedilol (Coreg) 12.5 mg PO BID [facility] Last Admin: 03/08/16 09:18 Dose: 12.5 mg Docusate Sodium (Colace) 100 mg PO BID PRN PRN Reason: Constipation Last Admin: 03/07/16 21:35 Dose: 100 mg Famotidine (Pepcid) 20 mg IV Q12 [facility] Last Admin: 03/08/16 09:17 Dose: 20 mg Furosemide (Lasix) 20 mg PO QAM [facility] Last Admin: 03/08/16 09:18 Dose: Not Given Heparin Sodium (Porcine) (Heparin) 5,000 unit SQ Q12 [facility] Last Admin: 03/08/16 09:17 Dose: 5,000 unit Dopamine HCl/Dextrose 400 mg/ (Premix) 250 mls @ 14.88 mls/hr IV .[id number] PRN; Protocol; 5 MCG/KG/MIN PRN Reason: TITRATE TO KEEP MAP > 60 Ceftriaxone Sodium 1 gm/ (Dextrose) 50 mls @ 100 mls/hr IV DAILY [facility] Last Admin: 03/08/16 11:24 Dose: 100 mls/hr Clindamycin Phosphate 600 mg/ (Dextrose) 54 mls @ 100 mls/hr IV Q8 [facility] Last Admin: 03/08/16 15:27 Dose: 100 mls/hr Norepinephrine Bitartrate 8 mg (/ Sodium Chloride) 250 mls @ 18.75 mls/hr IV Q24HP PRN; Protocol; 10 MCG/MIN PRN Reason: Hypotension Lisinopril (Zestril) 10 mg PO DAILY [facility] Last Admin: 03/08/16 09:18 Dose: 10 mg Lorazepam (Ativan) 0.5 mg IV Q2HP PRN PRN Reason: ANXIETY/SEDATION Last Admin: 03/07/16 19:08 Dose: 0.5 mg Magnesium Hydroxide (Milk Of Magnesia) 30 ml PO DAILYP PRN PRN Reason: Constipation Morphine Sulfate (Morphine) 2 mg IV Q2HP PRN PRN Reason: Pain Naloxone HCl (Narcan) 0.1 mg IV Q2MIN PRN PRN Reason: Opiate Reversal Ondansetron HCl (Zofran) 4 mg IV Q4-6HP PRN PRN Reason: Nausea And Vomiting Polyethylene Glycol (Miralax) 17 gm PO DAILY [facility] Last Admin: 03/08/16 09:17 Dose: 17 gm Potassium Chloride (Kdur) 20 meq PO QAMCC [facility] Last Admin: 03/08/16 09:17 Dose: 20 meq Senna (Senokot) 1 tab PO HSP PRN PRN Reason: Constipation Sodium Chloride (Saline Flush) 10 ml IV Q8 [facility] Last Admin: 03/08/16 15:31 Dose: 10 ml Medical - PN: A/P - Time Spent With Patient Total time spent is greater than 50% in coordination of care (as documented) at patient's floor/unit and/or counseling patient: (1) Asthma Status: Acute Current Visit: Yes (2) COPD (chronic obstructive pulmonary disease) Status: Acute Current Visit: Yes (3) Acute and chronic respiratory failure ([id number]) Status: Acute Current Visit: Yes (4) CHF (congestive heart failure) Status: Acute Current Visit: Yes (5) CAD (coronary artery disease) Status: Acute Current Visit: Yes (6) Hx of CABG Status: Acute Current Visit: Yes (7) ARF (acute renal failure) Status: Acute Current Visit: Yes - Narrative A/P Narrative: #1. Infectious disease/Pulmonary. this patient presents with acute on chronic respiratory failure likely due to bilateral pneumonia. This appears to be an aspiration pneumonia. -he was initially quite hypoxic, but is much improved on oxygen. -clinically he is improving quickly, and is quite comfortable today. I would like to continue IV antibiotics for another day and then consider discharge, as he is quite anxious to go home. Unfortunately, is chest x-ray looks a bit worse , and he has been a bit tachypneic overnight. However, I think this may be due to volume overload, and he was given a dose of IV Lasix this morning. We will see where we are in the morning. -Continue oxygen, bronchodilators, pulmonary toilet. -he is on a home inhaler with a steroid and long-acting bronchodilator. I think we can hold off on adding this back, as he is doing so well. -speech evaluation ordered, in view of possible aspiration.apparently he swallows fine, but should not use straws. #2. SIRS syndrome - early sepsis related to pneumonia, as evidenced by fever, tachypnea, hypoxia, hypotension leukocytosis. he is much improved after aggressive IV fluids and IV antibiotics. improved. -lactic acid is normal. #3. Cardiac. History of coronary disease as well as congestive heart failure. He has evidence of mild CHF on his x-ray, but clinically appears more dry, so he is receiving IV fluids. he did receive vasopressors for blood pressure support overnight, but weaned off of those this morning. -We will resume his usual medications of lisinopril, Coreg, Lasix, potassium. -.echocardiogram results are as noted above,and previous ejection fraction in 2015 was noted at 25%. He is followed by Dr. Perry of cardiology -I believe he needs a little diuresis today. #4. CODE STATUS: This was discussed with the patient as well as his son, and they agreed that he might be willing to accept ventilator management if he needed that to get over his pneumonia, but if his heart stops he does not want chest compressions or defibrillation. #5. DVT prophylaxis:Subcutaneous heparin . It looks like he is not on any anticoagulant at home, other than a baby aspirin. #6. Renal. he appears to have acute renal insufficiency associated with hyperkalemia. We will monitor this as we hydrate him. this visit took approximately 35 minutes today, to review test results, interview and examine the patient, review plan of care with staff, and write orders. Medical - PN: Qual - VTE Deep Vein Thrombosis/Pulmonary Embolism Present on Admission: No
[2016-03-09] MEDS: IPRATROPIUM/ALBUTEROL 3 ML AMPUL.NEB NEB SCH ×3 (01:56→12:48)
[2016-03-09] MEDS: CLINDAMYCIN 600 MG in DEXTROSE 5% IN WATER 50 ML IV SCH (05:27)
[2016-03-09] MEDS: 0.9 % SODIUM CHLORIDE 10 ML SYRINGE IV SCH (05:28)
[2016-03-09 06:23] LABS: Basophils # (Auto) 0 K/mcL (0.0-0.3); Basophils % (Auto) 0.4 % (0.0-2.0); Eosinophils # (Auto) 0.2 K/mcL (0.0-0.7); Eosinophils % (Auto) 3.2 % (0.0-7.0); Granulocytes % (Auto) 67.8 % (38.0-78.0); Lymphocytes # (Auto) 1.6 K/mcL (1.5-4.8); Lymphocytes % (Auto) 20.5 % (15.5-49.0); Mean Cell Volume 94.1 fL (80.0-100.0); Mean Corpuscular HGB Conc 32.5 g/dL (31.0-36.0); Mean Corpuscular Hemoglobin 30.6 pg (26.0-34.0); Monocytes # (Auto) 0.6 K/mcL (0.1-0.9); Monocytes % (Auto) 8.1 % (1.0-9.0); Platelet Count 219 K/mcL (140-440); Red Cell Distribution Width 14.1 % (11.5-14.5)
[2016-03-09 06:57] LABS: ALT/SGPT 15 U/l (0-40); Albumin 3.3 gm/dL (3.2-5.2); Albumin/Globulin Ratio 1.2 (1.0-2.3); Alkaline Phosphatase 69 U/L (39-117); Bilirubin,Direct < 0.2 mg/dL (0.0-0.3); Blood Urea Nitrogen 39 mg/dl (8-23); Gamma Glutamyl Transpeptidase 19 U/L (8-61); Magnesium 2.1 mg/dL (1.6-2.5); Phosphorous 2.5 mg/dL (2.7-4.5); Uric Acid 6.1 mg/dL (2.5-8.0)
[2016-03-09] MEDS ORDERED: FUROSEMIDE 40 MG/4 ML VIAL IV ONE (09:37)
[2016-03-09] MEDS: cefTRIAXone 1 GM in DEXTROSE 5% IN WATER 50 ML IV SCH (10:00)
[2016-03-09] MEDS: FAMOTIDINE/PF 20 MG/2 ML VIAL IV SCH (10:02)
[2016-03-09] MEDS: POTASSIUM CHLORIDE 20 MEQ TABLET PO SCH (10:02)
[2016-03-09] MEDS: HEPARIN 5,000 UNIT/ML VIAL SQ SCH (10:03)
[2016-03-09] MEDS: FUROSEMIDE 20 MG TABLET PO SCH (10:03)
[2016-03-09] MEDS: POLYETHYLENE GLYCOL 3350 17 GM PACKET PO SCH (10:04)
[2016-03-09] MEDS: CARVEDILOL 12.5 MG TABLET PO SCH (12:30)
[2016-03-09] MEDS: LISINOPRIL 10 MG TABLET PO SCH (12:30)
--- NOTE | 2016-03-09 14:08 | Discharge Summary ---
Medical - DS: Prov Patient information: Note initiated : 03/09/16 at 2:00 pm Service Date, if different from initiated Date: [] Patient: Radames Patten 85 y/o M admitted on 03/06/16 for Confusion, SOB/ Pneumonia. Chief Complaint: [] Date of admission: 03/06/16 15:15 Discharge date: 03/09/16 Primary care physician: [f_Reg Prim Care Provider] Medical - DS: Meds - Discharge Medications Prescriptions: Albuterol Sulfate [Proair Hfa] 8.5 gm IH Q4HP PRN #1 [email or web address] PRN Reason: Shortness Of Breath Or Wheezing Clindamycin [Cleocin] 300 mg PO QID #20 capsule Fluticasone/Vilanterol [Breo Ellipta 100-25 Mcg INH] 1 inh IH BID #1 device Active and Home Medications: Home Medications Acetaminophen-Cod #3 Tablet 30 mg PO HSP PRN 03/07/16 [History Confirmed Last Taken 03/05/16] Carvedilol [Coreg] 12.5 mg PO BID 03/07/16 [History Confirmed 03/07/16 Last Taken 03/05/16] Furosemide [Lasix] 20 mg PO QAM 03/07/16 [History Confirmed 03/07/16 Last Taken 03/05/16] Lisinopril [Zestril] 10 mg PO DAILY 03/07/16 [History Confirmed 03/07/16 Last Taken 03/05/16] Polyethylene Glycol 3350 [Miralax] 17 gm PO DAILY 03/07/16 [History Confirmed Last Taken 03/05/16] Potassium Chloride [Kdur] 20 meq PO QAM 03/07/16 [History Confirmed 03/07/16 Last Taken 03/05/16] Active Medications Acetaminophen (Tylenol) 650 mg PO Q4-6HP PRN PRN Reason: PAIN/FEVER > 101 Acetaminophen/Codeine Phosphate (Tylenol #3) 1 tab PO HSP PRN PRN Reason: Pain Last Admin: 03/08/16 20:54 Dose: 1 tab Albuterol Sulfate (Ventolin) 2.5 mg NEB Q4HP PRN PRN Reason: Shortness Of Breath Or Wheezing Last Admin: 03/08/16 22:35 Dose: 2.5 mg Albuterol/Ipratropium (Duoneb) 3 ml NEB Q6HRT [facility] Last Admin: 03/09/16 12:48 Dose: 3 ml Carvedilol (Coreg) 12.5 mg PO BID [facility] Last Admin: 03/09/16 12:30 Dose: 12.5 mg Docusate Sodium (Colace) 100 mg PO BID PRN PRN Reason: Constipation Last Admin: 03/07/16 21:35 Dose: 100 mg Famotidine (Pepcid) 20 mg IV Q12 [facility] Last Admin: 03/09/16 10:02 Dose: 20 mg Furosemide (Lasix) 20 mg PO QAM [facility] Last Admin: 03/09/16 10:03 Dose: Not Given Heparin Sodium (Porcine) (Heparin) 5,000 unit SQ Q12 [facility] Last Admin: 03/09/16 10:03 Dose: Not Given Dopamine HCl/Dextrose 400 mg/ (Premix) 250 mls @ 14.88 mls/hr IV .[id number] PRN; Protocol; 5 MCG/KG/MIN PRN Reason: TITRATE TO KEEP MAP > 60 Ceftriaxone Sodium 1 gm/ (Dextrose) 50 mls @ 100 mls/hr IV DAILY [facility] Last Admin: 03/09/16 10:00 Dose: 100 mls/hr Clindamycin Phosphate 600 mg/ (Dextrose) 54 mls @ 100 mls/hr IV Q8 [facility] Last Infusion: 03/09/16 12:30 Dose: Infused Norepinephrine Bitartrate 8 mg (/ Sodium Chloride) 250 mls @ 18.75 mls/hr IV Q24HP PRN; Protocol; 10 MCG/MIN PRN Reason: Hypotension Lisinopril (Zestril) 10 mg PO DAILY [facility] Last Admin: 03/09/16 12:30 Dose: 10 mg Lorazepam (Ativan) 0.5 mg IV Q2HP PRN PRN Reason: ANXIETY/SEDATION Last Admin: 03/07/16 19:08 Dose: 0.5 mg Magnesium Hydroxide (Milk Of Magnesia) 30 ml PO DAILYP PRN PRN Reason: Constipation Morphine Sulfate (Morphine) 2 mg IV Q2HP PRN PRN Reason: Pain Naloxone HCl (Narcan) 0.1 mg IV Q2MIN PRN PRN Reason: Opiate Reversal Ondansetron HCl (Zofran) 4 mg IV Q4-6HP PRN PRN Reason: Nausea And Vomiting Polyethylene Glycol (Miralax) 17 gm PO DAILY [facility] Last Admin: 03/09/16 10:04 Dose: Not Given Potassium Chloride (Kdur) 20 meq PO QAMCC [facility] Last Admin: 03/09/16 10:02 Dose: 20 meq Senna (Senokot) 1 tab PO HSP PRN PRN Reason: Constipation Sodium Chloride (Saline Flush) 10 ml IV Q8 [facility] Last Admin: 03/09/16 05:28 Dose: 10 ml Medical - DS: Hosp Hospital course: Mr. Patten is a 85 year old male March 06, 2016:History of present illness: Mr. Patten is a 85 year old male for 911 was called today for respiratory distress. His initial O2 saturations were reportedly in the 70s, with systolic blood pressure in the 80s. ER evaluation revealed evidence of both pulmonary infiltrates and congestive heart failure. The patient is responding to treatment with oxygen and IV fluids and a dopamine drip. He is now being admitted for community-acquired pneumonia, possibly aspiration pneumonia. the patient states that he has been having trouble with his breathing for at least a month, and was recently seen by pulmonary in [place]. He says they told him he had asthma although his son believes they said he had underlying COPD as well. He was started on a new inhaler Advair, and said ithad been working pretty well he thought. However the last several days she is experiencing increasing shortness of breath. His family notes he has been getting weaker. He has had a cough for quite some time, but said that also had been better recently. He otherwise denies fever or chills, headaches or dizziness, recent eye or ear changes, sore throat, chest pain or palpitations, wheezing, abdominal pain, nausea or vomiting. He does have occasional diarrhea, but says that is chronic. He denies rectal bleeding or dysuria. march 07, 2016: today, the patient says he is feeling much better.e is now maintaining his oxygen saturations on room air. He was weaned off his levophed this morning, and is maintaining his blood pressures nicely.he is already asking when he could go home. His white blood cell count though, remains quite elevated. Later this morning,he became more dyspneic with an increased respiratory rate. On reviewing his home medication list, which we just got, he is supposed to be on several cardiac meds including Lasix at home. He was given a dose of IV Lasix, and seemed to improve. therwise, he denies fever or chills, chest pain or palpitations. He feels his shortness of breath is improved, but not at baseline He thinks he is coughing less as well. He denies abdominal pain, nausea or vomiting. He does say that he has occasional constipation. He would like to have his Guerra catheter removed. march 08, 2016: today, the patient says he is a little short of breath when he first wakes up, but otherwise is feeling better. After the nebulizer treatment he says his breathing is fine. He denies headaches, fever or chills, sore throat, chest pain or palpitations, abdominal pain, nausea or vomiting or diarrhea, or dysuria. March 09, 2016: today, the patient continues to do well. He says hehas minimal shortness of breath and minimal cough. He denies fever or chills, chest pain or palpitations, GI or symptoms. He is anxious to return home. he did not diurese yesterday well with Lasix, so I gave him a larger dose today , as his last chest x-ray did look wet. He does have known underlying coronary disease and CHF. blood pressures have been borderline low, so we are staggering the doses of Lasix and Coreg and lisinopril. assessment and plan: #1. Infectious disease/Pulmonary. this patient presents with acute on chronic respiratory failure likely due to bilateral pneumonia. This appears to be an aspiration pneumonia. -he was initially quite hypoxic, but is much improved on oxygen. -clinically he is improving quickly, and is quite comfortable today. -he is maintaining oxygen saturations at 90% on room air. -he is on a Breo Ellipta with a steroid and long-acting bronchodilator. e can continue this using 1 puff twice a day. I will also add albuterol inhaler to be usedevery 4 hours when necessary. -speech evaluation ordered, in view of possible aspiration.apparently he swallows fine, but should not use straws. #2. SIRS syndrome - early sepsis related to pneumonia, as evidenced by fever, tachypnea, hypoxia, hypotension leukocytosis. he is much improved after aggressive IV fluids and IV antibiotics. -resolved. -lactic acid is normal. #3. Cardiac. History of coronary disease as well as congestive heart failure. his initial chest x-ray was suggestive of underlying CHF, but clinically he appeared dry, so did receive IV fluids and levo fed for blood pressure support initially. Blood pressures continue to run around 100 systolic but he now appears a little bit more volume overloaded, so was given extra IV Lasix today. Otherwise, we have resumed his usual lisinopril, Coreg, Lasix, potassium. -.echocardiogram results are as noted above,and previous ejection fraction in 2014 was noted at 25%. He is followed by Dr. Perry of cardiology -I believe he needs a little diuresis today. #4. CODE STATUS: This was discussed with the patient as well as his son, and they agreed that he might be willing to accept ventilator management if he needed that to get over his pneumonia, but if his heart stops he does not want chest compressions or defibrillation. #5. DVT prophylaxis:Subcutaneous heparin . It looks like he is not on any anticoagulant at home, other than a baby aspirin. #6. Renal. -on arrival he appeared to have acute on chronic renal failure, with BUNs of 69 , creatinine 1.4. This is now improved to a BUNs of 39, with a creatinine of 1.2. - Time Spent with Patient Total time spent providing and/or coordinating discharge services: Greater than 30 minutes (was spent today, reviewing the patient's chest results and vital signs, adjusting medications, interviewing and examining him, discussing plan of care with him and his son and nursing staff, and writing orders.) Medical - DS: Exam - Constitutional Vitals: Vital Signs Temp Pulse Pulse Resp BP Pulse Ox 03/09/16 13:58 96/67 03/09/16 13:00 98.8 F 84 18 127/68 91 03/09/16 12:48 87 18 03/09/16 12:00 127/68 03/09/16 11:00 93/66 03/09/16 10:00 22 103/62 91 03/09/16 09:00 84 22 98/62 90 03/09/16 08:26 75 26 H 03/09/16 08:00 87 22 98/62 92 03/09/16 07:00 22 106/64 93 03/09/16 06:00 61 31 H 93/60 91 03/09/16 05:00 71 25 H 101/54 93 03/09/16 04:00 98.8 F 62 31 H 93/47 97 03/09/16 03:00 63 27 H 89/55 95 03/09/16 02:12 68 24 03/09/16 02:00 76 20 111/61 91 03/09/16 01:00 72 29 H 100/59 91 03/09/16 00:00 98.6 F 60 24 98/60 91 03/08/16 23:00 72 23 104/54 94 03/08/16 22:35 73 20 03/08/16 22:00 74 14 128/65 91 03/08/16 21:00 74 22 129/72 94 03/08/16 20:00 98.7 F 70 26 H 106/52 95 03/08/16 19:00 73 23 100/63 92 03/08/16 18:25 75 24 94 03/08/16 17:48 78 22 99/54 93 03/08/16 16:00 98.7 F 73 20 108/66 94 03/08/16 15:00 20 94 Intake and Output 03/09/16 03/09/16 03/09/16 05:59 13:59 21:59 Intake Total 234 / 234 294 / 294 Output Total 425 / 425 550 / 550 Balance -191 / -191 -256 / -256 Intake: IV 54 / 54 54 / 54 Dextrose 5% in Water 50 54 / 54 54 / 54 ml @ 100 mls/hr IV Q8 JENNIFER with Cleocin 600 mg Rx#: [id number] Oral 180 / 180 240 / 240 Output: Void Amount 425 / 425 550 / 550 Other: Meal Lunch Percent of Meal Consumed 100% Feeding Ability Independent # Voids 200 Additional comments: on exam, he is awake and alert, and sitting up in a chair. 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 He says he feels fine, and denies chest pain, GI or symptoms. He has only mild shortness of breath, and no significant cough. O2 saturations are fine on room air. Neck is supple without obvious lymphadenopathy or JVD. Cardiac exam shows regular rate and rhythm. Lungs are clear to auscultation, without obvious rales, rhonchi, wheezes. Abdomen is soft and nontender. Extremities show no edema. Neurologic exam is grossly nonfocal. Medical - DS: Data Labs on day of discharge: Labs from last 24 hours 03/09/16 03/09/16 03:50 03:50 WBC 7.8 RBC 3.50 L Hgb 10.7 L Hct 32.9 L MCV 94.1 MCH 30.6 MCHC 32.5 RDW 14.1 Plt Count 219 MPV 8.8 Gran % 67.8 Lymph % (Auto) 20.5 Holmes % (Auto) 8.1 Eos % (Auto) 3.2 Baso % (Auto) 0.4 Gran # 5.3 Lymph # 1.6 Holmes # 0.6 Eos # 0.2 Baso # 0 Sodium 141 Potassium 4.3 Chloride 103 Carbon Dioxide 26 Anion Gap 12.0 BUN 39 H Creatinine 1.2 GFR Calculation 55 Glucose 91 Uric Acid 6.1 Calcium 8.8 Phosphorus 2.5 L Magnesium 2.1 Total Bilirubin 0.3 Direct Bilirubin < 0.2 GGT 19 AST 23 ALT 15 Alkaline Phosphatase 69 Lactate Dehydrogenase 177 Total Protein 6.1 Albumin 3.3 Globulin 2.8 Albumin/Globulin Ratio 1.2 Triglycerides 184 H portable chest x-ray from March 08, 2016: Moderate size infiltrates in the right mid and lower lung have worsened. Mild patchy infiltrate in the left lower lung has also worsened. Pulmonary vessels are mildly distended. echocardiogram, 03/07/16:nferior wall appears severely hypokinetic, but other segments contract normally. Estimated ejection fraction 40%. There is mild aortic root dilation. Mild aortic stenosis. Mild concentric LVH with segmental systolic dysfunction lactic acid is normal at 0.8 The BNP is elevated at 1514 eKG shows probable sinus rhythm with left axis deviationand slow R-wave progression. There is no old EKG to compare. chest x-ray done on March 06, 2016:Mild cardiomegaly and sternotomy changes. Pulmonary vessels are slightly distended. There is a moderate patchy infiltrate noted in the right mid and lower lungs and a small infiltrate in the left lower lung. Consider aspiration pneumonia. Consider underlying CHF. d-dimer is elevated at 5.53 urinalysis shows 5 ketones and 0.2 occult blood, but is otherwise normal. blood cultures are negative so far. Medical - DS: A/P - Patient/Caregiver Discharge Instructions Activity: increase activity as tolerated Diet: Low Sodium (2gm), Cardiac Additional Instructions: #1. Takeantibiotics as prescribed, until completed. #2. The antibiotics may cause diarrhea Please call us if you develop persistent diarrhea or abdominal cramping. #3. Please use the inhaler you already have,Breo, one puff twice a day. We also gave you next her inhaler called albuterol. You can use 1-2 puffs of this every 4 hours as needed for any shortness of breath or wheezing. #4. Please call your doctor or return to the ERif you develop high fever or shortness of breath again. #5. He may want to follow-up with either a primary care doctor or your communications analyst in the next week or so, to recheck your vital signs and your lungs. Prescriptions: Albuterol Sulfate [Proair Hfa] 8.5 gm IH Q4HP PRN #1 [email or web address] PRN Reason: Shortness Of Breath Or Wheezing Clindamycin [Cleocin] 300 mg PO QID #20 capsule Fluticasone/Vilanterol [Breo Ellipta 100-25 Mcg INH] 1 inh IH BID #1 device - Problem Maintenance (1) Asthma Status: Chronic (2) COPD (chronic obstructive pulmonary disease) Status: Chronic (3) Acute and chronic respiratory failure ([id number]) Status: Resolved (4) CHF (congestive heart failure) Status: Chronic (5) CAD (coronary artery disease) Status: Chronic Qualifiers: Coronary Disease-Associated Artery/Lesion type: [place] artery [place] vs. transplanted heart: [place] heart Associated angina: without angina Qualified Code(s): I25.10 - Atherosclerotic heart disease of [place] coronary artery without angina pectoris (6) Hx of CABG Status: Inactive (7) ARF (acute renal failure) Status: Acute - Follow up Plan Follow up with: Haevn Ricks ARNP [Primary Care Provider] - Disposition: Home Health Service Prognosis: Good Rehab Potential: Good Overall status at discharge: patient is progressing back to baseline Medical - DS: Qual - VTE Deep Vein Thrombosis/Pulmonary Embolism Present on Admission: No
== END 2016-03-09 15:00 | disposition home health service (06) | DRG 871 ==
LOC: ED 09:56 → ICU 15:11
PROVIDERS: ADMIT Internal Medicine; ATTEND Internal Medicine